=== PATIENT | male | born 1975 | race Caucasian/White ===

== ENCOUNTER 2024-10-06 09:22 | Emergency (ER) | payer BC ==
[2024-10-06 09:45] LABS: BASOPHILS PERCENT AUTO 0.2 % (0.2-1.2); EOSINOPHILS ABSOLUTE AUTO 0.1 x10^3/uL (0.0-0.5); EOSINOPHILS PERCENT AUTO 0.7 % (0.0-4.0); HEMATOCRIT 48.3 % (40.0-52.0); HEMOGLOBIN 16.6 g/dL (14.0-18.0); IMMATURE GRAN ABSOLUTE AUTO 0.03 x10^3/uL (0.00-0.07); LYMPHOCYTES ABSOLUTE AUTO 1.3 x10^3/uL (1.0-4.8); LYMPHOCYTES PERCENT AUTO 14.3 % (25.0-50.0); MEAN CORPUSCULAR HEMOGLOBIN 31.1 pg (26.0-32.0); MEAN CORPUSCULAR HGB CONC 34.4 g/dL (32.0-36.0); MEAN CORPUSCULAR VOLUME 90.6 fL (78.0-93.0); MONOCYTES ABSOLUTE AUTO 0.7 x10^3/uL (0.0-0.8); MONOCYTES PERCENT AUTO 8.4 % (2.0-11.0); NEUTROPHILS ABSOLUTE AUTO 6.7 x10^3/uL (1.8-7.7); NEUTROPHILS PERCENT AUTO 76.1 % (50.0-80.0); PLATELET COUNT,PLT 218 x10^3/uL (130-400); RED BLOOD CELL COUNT 5.33 x10^6/uL (4.5-6.0); WHITE BLOOD CELL COUNT,WBC 8.8 x10^3/uL (4.0-10.0)
[2024-10-06] MEDS: Morphine 4 MG/ML Syringe IVPUSH ONE (10:00)
[2024-10-06 10:03] LABS: INR 0.9 (0.9-1.1); PROTHROMBIN TIME 9.9 SEC (9.6-12.0); PTT,PARTIAL THROMBOPLSTIN TIME 24.9 SEC (23.5-33.2)
[2024-10-06 10:08] LABS: LACTIC ACID 0.9 mmol/L (0.4-2.0)
[2024-10-06 10:15] LABS: ALANINE AMINOTRANSFERASE,ALT 48 U/L (16-63); ALBUMIN 4.3 g/dL (3.4-5.0); ALKALINE PHOSPHATASE 63 U/L (46-116); ANION GAP 14.5 mmol/L (5-15); ASPARTATE AMNIOTRANSFERASE,AST 31 U/L (15-37); BILIRUBIN TOTAL 0.6 mg/dL (0.2-1.0); BLOOD UREA NITROGEN,BUN 21 mg/dL (7-18); C-REACTIVE PROTEIN < 0.50 mg/dL (<=0.50); CALCIUM 9.3 mg/dL (8.5-10.1); CARBON DIOXIDE,CO2 25 mmol/L (21-32); CHLORIDE,CL 104 mmol/L (98-107); CREATININE 1.1 mg/dL (0.70-1.30); EST CRCL DRUG DOSING (CG) 90.14 mL/min; ESTIMATED GFR 83 mL/min (>=60); GLUCOSE RANDOM 107 mg/dL (70-99); MAGNESIUM 1.8 mg/dL (1.8-2.4); POTASSIUM,K 4.5 mmol/L (3.5-5.1); PRO B-TYPE NATRIUR PEPT,BNPPRO < 5 pg/mL (<=125); PROTEIN TOTAL,TP 7.6 g/dL (6.4-8.2); SODIUM,NA 139 mmol/L (136-145); TSH ULTRASENSITIVE 1.023 uIU/mL (0.358-3.74)
[2024-10-06] MEDS: Ondansetron 4 MG/2 ML SDV IVPUSH ONE (10:27)
[2024-10-06] MEDS: Heparin Sodium 5,000 Units/ML Vial IVPUSH ONE (10:34)
[2024-10-06] MEDS: Heparin Sodium/0.45% NaCl 25,000 UNITS/250 ML BAG IV SCH (10:35)
[2024-10-06] MEDS: Nitroglycerin/D5W 25 MG/250 ML BOTTLE IV SCH (10:40)
[2024-10-06] MEDS: cefTRIAXone 1 GM Vial IVPUSH ONE (10:45)
[2024-10-06] MEDS: Doxycycline Monohydrate 100 MG Cap PO ONE (10:45)
== END 2024-10-06 13:45 | disposition home or self-care (01) ==
LOC: SUPCPDRO 09:22 → VM.ED 09:22
DX: J18.9 Pneumonia, unspecified organism (principal); I10 Essential (primary) hypertension; E11.9 Type 2 diabetes mellitus without complications; E66.9 Obesity, unspecified; Z68.41 Body mass index [BMI] 40.0-44.9, adult
CPT/HCPCS: 36415; 71045; 80053; 83605; 83735; 83880; 84443; 84484; 85025; 85379; 85610; 85730; 86140; 93005; 96365; 96366; 96368; 96375; 99285; A9270; J0696; J1644; J2270; J2305; J2405